=== PATIENT | female | born 1940 | race Caucasian/White ===

== ENCOUNTER 2022-07-24 23:04 | Inpatient (IN) | payer MEDICARE, MEDICAID, SELFPAY ==
--- NOTE | ~2022-07-24 | XR_ITS ---
EXAMINATION: XR chest 1V portable DATE: 07/24/2022 23:50 INDICATION: Hypotensive TECHNIQUE: frontal view of the chest was obtained. COMPARISON: None FINDINGS: Mild streaky left basilar atelectasis. No other airspace opacities, pulmonary edema, pleural effusion or pneumothorax. The cardiomediastinal silhouette is within normal limits for AP technique. Cholecys tectomy clips in right upper quadrant. IMPRESSION: 1. Streaky left basilar atelectasis. Reviewed, dictated and finalized at location A.
--- NOTE | ~2022-07-24 | XR_ITS ---
EXAMINATION: XR chest port-a-cath/central DATE: 07/25/2022 02:11 INDICATION: Status post central line placement TECHNIQUE: frontal view of the chest was obtained. COMPARISON: Chest radiograph dated 07/24/22 FINDINGS: Right internal jugular central venous catheter with distal tip at the midsuperior vena cava. Small yared ng volumes. Mild streaky left basilar atelectasis. No other airspace opacities, pulmonary edema, pleu ral effusion or pneumothorax. The cardiomediastinal silhouette is within normal limits for AP techniq ue. Cholecystectomy clips in right upper quadrant. IMPRESSION: 1. Right internal jugular central venous catheter tip at the midsuperior vena cava. No pneumothorax. 2. Mild streaky left basilar atelectasis. Reviewed, dictated and finalized at location A. IMPRESSION: 1. Right internal jugular central venous catheter tip at the midsuperior vena c geovani. No pneumothorax. 2. Mild streaky left basilar atelectasis.
--- NOTE | ~2022-07-24 | CT_ITS ---
EXAMINATION: CT brain wo con INDICATION: Hypotension, fever, altered mental status COMPARISON: None TECHNIQUE: Standard unenhanced head CT. The dose-length product (DLP) was 681.00 mGy-cm. The mA was a djusted according to patient size. Iterative reconstruction technique was employed. FINDINGS: There is no acute intraparenchymal hemorrhage. No evidence of mass lesion. No evidence of a cute infarction. There is an old infarct in the right frontoparietal region. There is mild periventri cular and subcortical hypodensity probably related to small vessel ischemic disease. There is mild pr ominence of the sulci and ventricles related to cerebral atrophy. Intracranial calcified cerebral ath erosclerosis is noted. There are no extra-axial collections. There is no mass effect or midline shift . The orbits and soft tissues are unremarkable. There is mild mucosal thickening of the paranasal sin uses. IMPRESSION: 1. 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 2. Age related findings. Reviewed, dictated and finalized at location L. IMPRESSION: 1. 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 2. Age related findings.
[2022-07-24 23:10] VITALS: BP 84/55; PULSE 128; RESP 13; TEMP 38.1; O2SAT 95
[2022-07-24 23:22] VITALS: BP 134/63; PULSE 125; RESP 14; TEMP 38.1; O2SAT 96
--- NOTE | 2022-07-24 23:22 | ECG_ITS ---
Measurements Intervals [place] Rate: 127 P: 100 RI: 189 QRS: -47 QRSD: 86 T: 53 QT: 404 QTc: 588 Interpretive Statements SINUS TACHYCARDIA LOW QRS VOLTAGE IN PRECORDIAL LEADS [QRS DEFLECTION < 1.0 mV IN CHEST LEADS] LEFT ANTERIOR FASCICULAR BLOCK [QRS AXIS <= -45, QR IN I, RS IN II] POSSIBLE INFERIOR MYOCARDIAL INFARCTION , PROBABLY OLD [30 ms Q WAVE IN II/aVF] NO PREVIOUS ECG AVAILABLE FOR COMPARISON Electronically Signed On 07-25-2022 10:40:55 CDT by Jayden Medina M.D.
[2022-07-24 23:34] VITALS: BP 134/63; PULSE 124; RESP 19; O2SAT 98
[2022-07-24 23:45] VITALS: BP 93/73; PULSE 121; RESP 19; O2SAT 99
[2022-07-25] VITALS (43 sets, daily range): BP systolic 78–166; BP diastolic 40–106; PULSE 69–111; RESP 12–20; TEMP 32.2–39.7; O2SAT 92–100; BMI 36.6
[2022-07-25 00:08] LABS: Basophils Absolute Auto 0.1 K/mm3 (0.0-0.1); Basophils Percent Auto 0.6 % (0.2-1.2); Hematocrit 43.2 % (37.0-47.0); Immature Granulocyte Absolute 0.19 K/mm3 (0.00-0.031); Immature Granulocyte Percent A 0.9 % (0-0.5); Lymphocytes Absolute Auto 1.26 K/mm3 (0.9-3.2); Lymphocytes Percent Auto 5.8 % (18.3-44.2); Mean Corpuscular HGB Conc 32.4 g/dl (32-36); Mean Corpuscular Hemoglobin 31.3 pg (26-34); Mean Corpuscular Volume 96.6 fl (80-100); Mean Platelet Volume 10.7 fl (7.4-10.4); Monocytes Absolute Auto 2.6 K/mm3 (0.1-0.6); Monocytes Percent Auto 11.8 % (2.6-8.5); Neutrophils Absolute Auto 17.5 K/mm3 (1.3-6.7); Neutrophils Percent Auto 80.9 % (45.5-73.1); Platelet Count Result 177 k/mm3 (150-375); Red Blood Count 4.47 M/mm3 (4.2-5.4); White Blood Count 21.6 K/mm3 (4.5-10.0)
[2022-07-25 00:16] LABS: INR 1.4; Prothrombin Time 16.4 Seconds (11.1-14.7)
[2022-07-25 00:20] LABS: Lactic Acid Reflex 1.9 mmol/L (0.7-2.0)
[2022-07-25 00:21] LABS: Alanine Aminotransferase 20 U/L (6-35); Albumin Level 3.8 g/dL (3.5-5.1); Alkaline Phosphatase 89 U/L (38-126); Anion Gap 9 mmol/L (8-16); Aspartate Amino Transferase 30 U/L (14-36); Bilirubin,Total 1.1 mg/dL (0.2-1.3); Blood Urea Nitrogen 14 mg/dL (7-17); CRP 5.3 mg/dL (<1.0); Calcium 8.5 mg/dL (8.4-10.2); Carbon Dioxide 25 mmol/L (22-30); Chloride 103 mmol/L (98-107); Estimated Glomerular Filt Rate 60; Glucose 227 mg/dL (65-110); Potassium 3.9 mmol/L (3.4-5.0); Sodium 137 mmol/L (137-145)
[2022-07-25 00:28] LABS: Appearance Urine Turbid (Clear); Bacteria Urine 4+ /hpf; Bilirubin Urine 1+ (Negative); Blood Urine 2+ (Negative); Color Urine Dark Yellow (Yellow); Glucose Urine UA Negative (Negative); Ketones Urine 1+ mg/dL (Negative); Leukocyte Esterase Ur 2+ LEU/UL (Negative); Need Manual Microscopic Reviewed; Nitrate Urine Positive (Negative); Protein Urine 3+ mg/dL (Negative); Specific Grav Ur 1.023 (1.001-1.035); Squamous Epithelial Cell Urine None seen /hpf (Few); WBC Urine >100 /hpf; pH Urine 5.5 (5.0-9.0)
[2022-07-25 00:38] LABS: Add Urine Microscopic? YES
[2022-07-25] MEDS: NOREPINEPHRINE 8 MG/D5W 250 ML 8 MG/250 ML BAG 9.38 MG IV CONT (00:40)
--- NOTE | 2022-07-25 00:40 | PC.NURSE ---
VORB ERP Zych RN to initiate Norepinephrine peripherally.
[2022-07-25] MEDS: SODIUM CHLORIDE 0.9% IV 3,000 ML 999 ML IV CONT (00:47)
[2022-07-25 00:55] LABS: Influenza A QL RT-PCR Negative (Negative); Influenza B QL RT-PCR Negative (Negative); RSV RNA, RT-PCR Negative (Negative); SARS-CoV-2 RNA PCR Negative
[2022-07-25 01:55] LABS: Creatine Kinase 47 U/L (30-135); Lipase 30 U/L (23-300); Magnesium 1.7 mg/dL (1.6-2.3); Phosphorus 3.2 mg/dL (2.5-4.5)
[2022-07-25 02:08] LABS: Troponin I 0.018 ng/mL (0.000-0.034)
[2022-07-25] MEDS: CEFEPIME 1 GM/NS 50 ML 1 GM/50 ML BAG IVPB ×3 (02:14→20:58)
--- NOTE | 2022-07-25 02:30 | ED.GENADULT ---
HPI - General Adult General Chief complaint: Nausea/Vomiting/Diarrhea Stated complaint: N/V, FEVER History of Present Illness HPI narrative: This is an 81-year-old female with a history of dementia presenting from the halfway for fever and low blood pressures. The patient is responsive to pain at this point cannot provide any information. Her daughter Cecily is at bedside who is her power of mergers and acquisitions attorney who is provided the history. per the patient's daughter over the last 2 days she has been having a cough and respiratory symptoms. The halfway and obtained an x-ray which was clear. However can not patient's condition continued to worsen and she was then sent to the emergency department for evaluation. They can provide no other information. Related Data Allergies Allergy/AdvReac Type Severity Reaction Status Date / Time Penicillins Allergy Mild Unknown Verified 07/24/22 23:36 [facility] Past Medical History Medical History (Updated 07/25/22 @ 02:53 by Mauricio Dickinson MD) Dementia Depression Social History Social History (Updated 07/25/22 @ 02:33 by Mauricio Dickinson MD) Social History: Patient lives in [facility]. Denies use of drugs alcohol tobacco. Exam Narrative: APPEARANCE: Patient looks ill, responsive to pain Head: atraumatic. EYES: EOMI, NOSE: Atraumatic NECK: Trachea midline RESPIRATORY: No increased rate of breathing, scattered rhonchi, hypoxic on room air CARDIOVASCULAR: tachycardic, ABDOMINAL: distended, soft no guarding or rebound MUSCULOSKELETAl: No obvious deformities NEURO: Alert. Moving 4/4 extremities SKIN:: pale, no sacral skin breakdown PSYCHIATRIC: responsive to pain Course Vital Signs Vital signs: Vital Signs Temperature 100.5 F H 07/24/22 23:10 Pulse Rate 128 H 07/24/22 23:10 Respiratory Rate 13 07/24/22 23:10 Blood Pressure 84/55 L 07/24/22 23:10 Pulse Oximetry 95 07/24/22 23:10 Oxygen Delivery Nasal Cannula 07/24/22 23:10 Oxygen Flow Rate 2 07/24/22 23:10 Temperature 94.8 F L 07/25/22 01:16 Pulse Rate 78 07/25/22 01:16 Respiratory Rate 13 07/25/22 01:16 Blood Pressure 107/47 L 07/25/22 01:16 Pulse Oximetry 100 07/25/22 01:16 Oxygen Delivery Nasal Cannula 07/24/22 23:10 Oxygen Flow Rate 2 07/24/22 23:10 Procedures Central Line Placement Right IJ: Central Line Date: 07/25/22 Discussed w/ the patient/family/POA,the placement of a central venous catheter, including its clinical necessity/indication & associated potential risks, benifits and alternatives.: Yes Performed Emergently - Given emergent patient condition, temporal constraints may have precluded informed consent.: Yes Time Out Performed: Yes Max. Sterile Barrier Technique: Caps, large sterile sheet and hand hygiene Central Line Prep: 2% chlorhexidine scrub and sterile drapes applied Technique: US-Guided Local Anesthetic: lidocaine 2% Ultrasound Used for Placement: Yes Central Line Lumen Inserted: triple Post Procedure: sutured in place, good blood return, all ports aspirated, flushed, capped and sterile dressing applied Post Procedure X-Ray: tip of catheter in good position and no pneumothorax seen Patient Tolerated Procedure: well Additional Comments: left subclavian placement was attempted but was unable to advance the guidewire. Switch to right IJ at that point under ultrasound guidance. Chest x-ray showed proper location with no pneumothorax. EJ/Peripheral Line Arm R: EJ/Peripheral Line Date: 07/25/22 Time Out Performed: Yes Skin Cleansed in Sterile Fashion: Yes Ultrasound Guided: Yes Size (gauge): 20 IV Secured and Dressing Applied: Yes Patient Tolerated Procedure: well Additional Comments: 20 gauge ultrasound IV started by MD due to difficult access. Medical Decision Making LILY thornton
--- NOTE | 2022-07-25 03:57 | PM.IMHP ---
H&P: HPI History of Present Illness Date/Time: 07/25/22 03:57 Chief Complaint: Altered mental status Narrative: This is an 81-year-old female assisted resident, past medical history significant for dementia, hypertension. Patient was brought to the emergency room due to episode of fever and low blood pressure most of the history has been obtained upon reviewing medical records, discussion with emergency room doctor and review of lab work and imaging. Preliminary workup was significant for urinalysis with numerous WBCs present. In emergency room patient had a core temperature of 90? degrees, required central line for vasopressors, early goal-directed therapy was commenced. Patient is been admitted to intensive care unit. A chest x-ray was reported as: FINDINGS: Mild streaky left basilar atelectasis. No other airspace opacities, pulmonary edema, pleural effusion or pneumothorax. The cardiomediastinal silhouette is within normal limits for AP technique. Cholecystectomy clips in right upper quadrant. IMPRESSION: 1. Streaky left basilar atelectasis. A head CT was reported as: FINDINGS: There is no acute intraparenchymal hemorrhage. No evidence of mass lesion. No evidence of acute infarction. There is an old infarct in the right frontoparietal region. There is mild periventricular and subcortical hypodensity probably related to small vessel ischemic disease. There is mild prominence of the sulci and ventricles related to cerebral atrophy. Intracranial calcified cerebral atherosclerosis is noted. There are no extra-axial collections. There is no mass effect or midline shift. The orbits and soft tissues are unremarkable. There is mild mucosal thickening of the paranasal sinuses. IMPRESSION: 1. 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 2. Age related findings. Review of Systems Review of Systems: ROS unobtainable: Yes unobtainable due to mental status (Acute delirium in the setting of dementia) [facility] Past Medical History Medical History (Updated 07/25/22 @ 09:22 by Joaquin Solomon MD) Dementia Depression Social History Social History (Updated 07/25/22 @ 02:33 by Mauricio Dickinson MD) Social History: Patient lives in [facility]. Denies use of drugs alcohol tobacco. Smoking status: Former smoker Additional smoking assessment comments: Stopped smoking several decades ago, unsure how much Alcohol intake: former Substance use: never Spiritual care concerns: No Meds Home Medications and Allergies Home Medications Medication Instructions Recorded Confirmed Type albuterol sulfate 90 mcg/actuation 2 inh inhalation Q6H PRN Shortness 07/25/22 07/25/22 History aerosol inhaler Of Breath Or Wheezing amlodipine 5 mg tablet 5 mg PO DAILY 07/25/22 07/25/22 History cholecalciferol (vitamin D3) 50 50 mcg PO DAILY 07/25/22 07/25/22 History mcg (2,000 unit) tablet donepezil 10 mg tablet 10 mg PO DAILY 07/25/22 07/25/22 History famotidine 20 mg tablet 20 mg PO DAILY 07/25/22 07/25/22 History linaclotide 145 mcg capsule 145 mcg PO DAILY 07/25/22 07/25/22 History (Linzess) losartan 100 mg tablet 100 mg PO DAILY 07/25/22 07/25/22 History memantine 10 mg tablet 10 mg PO BID 07/25/22 07/25/22 History nystatin 100,000 unit/gram topical 1 applic topical BID 07/25/22 07/25/22 History powder ondansetron 4 mg disintegrating 4 mg PO Q6H PRN Nausea 07/25/22 07/25/22 History tablet quetiapine 100 mg tablet 100 mg PO DAILY 07/25/22 07/25/22 History Allergies Allergy/AdvReac Type Severity Reaction Status Date / Time Penicillins Allergy Mild Unknown Verified 07/24/22 23:36 Vital Signs Vital Signs - 24 hr 07/24/22 23:10 07/24/22 23:22 07/25/22 00:00 Temperature 100.5 F H 100.5 F H 100 F H Pulse Rate 128 H 125 H Respiratory Rate 13 14 Blood Pressure 84/55 L 134/63 Pulse Oximetry 95 96 Oxygen Delivery Nasal Cannula Oxygen Flow Rate 2 04
[2022-07-25 03:58] LABS: Troponin I 0.014 ng/mL (0.000-0.034)
--- NOTE | 2022-07-25 04:20 | ADMGEN ---
This patient, Darlene Alford, was admitted to Intensive Care Unit-1. Patient/family oriented to hospital policies and general routines including ID bracelet, bed and alarms, visiting hours, pain management, procedures, bathroom and other care routines, personal items, smoking policy, room service/diet, and visiting hours. Information on how to activate the Rapid Response Team has been discussed. Patient/Family are encouraged to report perceived risks to care and to ask questions if they do not understand what they are told or what they should do.
--- NOTE | 2022-07-25 04:51 | PC.NURSE ---
Upon arrival to unit, patient noted to be hypertensive with BP as charted. Norepinephrine paused by guest services and admission interview started with family. BP remains elevated at this time. Levophed will remain on hold and MD notified.
[2022-07-25] MEDS: SODIUM CHLORIDE 0.9% IV 1,000 ML 85 ML IV CONT ×2 (05:16→18:20)
--- NOTE | 2022-07-25 07:15 | PC.NURSE ---
Addendum entered by Yong Kinsey RN 07/25/22 07:17: Patient's status discussed with furniture assembly supervisor during 0700 rounds as well. Original Note: RN contacted jockey room custodian multiple times throughout the night since patient's arrival to the floor and received new orders at various intervals. (See orders). During these contacts we discussed patient's vitals including her BP and temperature and her medications as well as her response to them.
[2022-07-25] MEDS: MEMANTINE 10 MG TABLET PO ×2 (08:59→18:20)
[2022-07-25] MEDS: CHOLECALCIFEROL 1,000 UNITS TABLET 2000 UNITS PO (08:59)
[2022-07-25] MEDS: LINACLOTIDE 145 MCG CAPSULE PO (09:00)
[2022-07-25] MEDS: DONEPEZIL HCL 10 MG TABLET PO (09:00)
[2022-07-25] MEDS: QUEtiapine FUMARATE 100 MG TABLET PO (09:00)
[2022-07-25] MEDS: FAMOTIDINE 20 MG TABLET PO (09:01)
[2022-07-25] MEDS: TOLNAFTATE 1% POWDER 45 GM BTL 1 APPLIC TOPICAL (09:01)
--- NOTE | 2022-07-25 09:05 | WPDCNINT ---
Assessment and Plan Assessment and plan (1) Septic shock: Code(s): A41.9 - Sepsis, unspecified organism; R65.21 - Severe sepsis with septic shock Status: Acute Assessment and Plan: Patient presented with altered mental status, hypotension, fevers - ER patient was found to be hypotensive despite fluid bolus of 30 mL/kg, she was started on Levophed - currently off Levophed - likely source of infection is urine, UA was strongly positive for UTI - patient started on vancomycin and cefepime (07/25) - blood and urine cultures have been obtained, will deescalate antibiotics after cultures results - maintain mean arterial pressure > 65 mmHg for adequate end organ perfusion - lactic acid is 1.9, LFTs are within normal limits, troponins are negative x2 (2) Acute UTI: Code(s): N39.0 - Urinary tract infection, site not specified Status: Acute Assessment and Plan: UA strongly positive for UTI - continue antibiotics as above - urine cultures have been obtained and pending (3) Altered mental status: Code(s): R41.82 - Altered mental status, unspecified Status: Acute Assessment and Plan: mental status improving, patient more awake this morning, able to answer questions and follow simple commands (4) Dementia: Code(s): F03.90 - Unspecified dementia, unspecified severity, without behavioral disturbance, psychotic disturbance, mood disturbance, and anxiety Status: Acute Assessment and Plan: history of dementia - continued donepezil, Namenda, Seroquel (5) Essential hypertension: Code(s): I10 - Essential (primary) hypertension Status: Acute Assessment and Plan: history of essential hypertension hold all antihypertensives at this time Plan DVT prophylaxis: Stress ulcer prophylaxis: famotidine Nutrition: will start diet Code Status: not resuscitate, do not intubate Critical Care Time Spent: 47 minutes Due to a high probability of clinically significant, life threatening deterioration, the patient required my highest level of preparedness to intervene emergently and I personally spent this critical care time directly and personally managing the patient. This critical care time included obtaining a history; examining the patient; pulse oximetry; ordering and review of studies; arranging urgent treatment with development of a management plan; evaluation of patient's response to treatment; frequent reassessment; and discussions with other providers. It was exclusive of separately billable procedures and treating other patients and teaching time. Please see Assessment and Plan section and the rest of the note for further information on patient assessment and treatment This dictation may have been done utilizing a voice recognition system. Attempts have been made to correct errors. However, there may be uncorrected grammatical, spelling, and recognitions errors present. Manager Of Organizational Development Consult Note Consult date: 07/25/22 Reason for consult: Septic shock, UTI, fevers, hypotension, cough HPI: Darlene Alford is a 81 year old female past medical history of dementia, depression, essential hypertension presented the ED on 07/25/2022 with complains of hypotension, fevers, cough, chest x-ray done at the custodial was normal which he continue to worsen and was sent to the ED for further evaluation. In the ER is she was found to have leukocytosis, UA was strongly positive for UTI. Patient tested negative for COVID, RSV and influenza A & B. CT head showed old right frontoparietal region infarct without acute intracranial abnormality, age-related fin chest x-ray showed right internal jugular central venous catheter tip at the mid superior vena cava, no pneumothorax, mild streaky left basal atelectasis. Patient was given 30 mL/kg IV fluids despite which her blood pressures were low, patient was startedOn Levophed and transferred to the ICU. She did receive vancom
[2022-07-25] MEDS: ENOXAPARIN 40 MG/0.4 ML SYRINGE SUB-Q (10:24)
--- NOTE | 2022-07-25 15:38 | PC.NURSE ---
This patient, Darlene Alford, was transferred to [facility] on 07/25/22 at 1538. Personal belongings sent with patient. Report given to Flaquita. Appropriate documentation sent with patient.
[2022-07-26] VITALS (9 sets, daily range): BP systolic 144–160; BP diastolic 61–70; PULSE 89–99; RESP 14–20; TEMP 36.8–37.3; O2SAT 91–92
[2022-07-26 03:53] LABS: Basophils Absolute Auto 0.1 K/mm3 (0.0-0.1); Basophils Percent Auto 0.6 % (0.2-1.2); Eosinophils Absolute Auto 0.1 K/mm3 (0-0.3); Eosinophils Percent Auto 0.3 % (0-4.4); Hematocrit 39.6 % (37.0-47.0); Hemoglobin 12.9 g/dL (12.0-15.0); Immature Granulocyte Absolute 0.18 K/mm3 (0.00-0.031); Immature Granulocyte Percent A 0.8 % (0-0.5); Lymphocytes Absolute Auto 1.92 K/mm3 (0.9-3.2); Lymphocytes Percent Auto 8.8 % (18.3-44.2); Mean Corpuscular HGB Conc 32.6 g/dl (32-36); Mean Corpuscular Volume 98.3 fl (80-100); Mean Platelet Volume 10.6 fl (7.4-10.4); Monocytes Absolute Auto 2.3 K/mm3 (0.1-0.6); Monocytes Percent Auto 10.5 % (2.6-8.5); Neutrophils Absolute Auto 17.3 K/mm3 (1.3-6.7); Platelet Count Result 146 k/mm3 (150-375); Red Blood Count 4.03 M/mm3 (4.2-5.4); Red Cell Distribution Width 14.6 % (11.5-14.5); White Blood Count 21.9 K/mm3 (4.5-10.0)
[2022-07-26 03:59] LABS: Alanine Aminotransferase 17 U/L (6-35); Albumin Level 3.2 g/dL (3.5-5.1); Alkaline Phosphatase 74 U/L (38-126); Anion Gap 6 mmol/L (8-16); Aspartate Amino Transferase 24 U/L (14-36); Bilirubin,Total 0.8 mg/dL (0.2-1.3); Blood Urea Nitrogen 12 mg/dL (7-17); Calcium 7.8 mg/dL (8.4-10.2); Carbon Dioxide 26 mmol/L (22-30); Chloride 107 mmol/L (98-107); Estimated CRCL calculation 62 ml/min; Estimated Glomerular Filt Rate > 60; Glucose 204 mg/dL (65-110); Magnesium 1.5 mg/dL (1.6-2.3); Phosphorus 1.5 mg/dL (2.5-4.5); Potassium 3.6 mmol/L (3.4-5.0); Sodium 139 mmol/L (137-145)
[2022-07-26] MEDS: SODIUM CHLORIDE 0.9% IV 1,000 ML 85 ML IV CONT ×2 (09:05→21:43)
[2022-07-26] MEDS: CHOLECALCIFEROL 1,000 UNITS TABLET 2000 UNITS PO (09:14)
[2022-07-26] MEDS: CEFEPIME 1 GM/NS 50 ML 1 GM/50 ML BAG IVPB (09:14)
[2022-07-26] MEDS: DONEPEZIL HCL 10 MG TABLET PO (09:15)
[2022-07-26] MEDS: ENOXAPARIN 40 MG/0.4 ML SYRINGE SUB-Q (09:15)
[2022-07-26] MEDS: MEMANTINE 10 MG TABLET PO ×2 (09:15→18:25)
[2022-07-26] MEDS: FAMOTIDINE 20 MG TABLET PO (09:15)
[2022-07-26] MEDS: LINACLOTIDE 145 MCG CAPSULE PO (09:15)
[2022-07-26] MEDS: TOLNAFTATE 1% POWDER 45 GM BTL 1 APPLIC TOPICAL ×2 (09:16→18:24)
[2022-07-26] MEDS: QUEtiapine FUMARATE 100 MG TABLET PO (09:17)
--- NOTE | 2022-07-26 12:01 | PM.IMPN ---
Progress Note: A&P Assessment and Plan (1) Sepsis: Code(s): A41.9 - Sepsis, unspecified organism Status: Acute Assessment and Plan: Admit to ICU Early goal-directed therapy in progress Await cultures On broad-spectrum antibiotics On vasopressors Mathur in strict intake and output Supportive care (2) Acute UTI: Code(s): N39.0 - Urinary tract infection, site not specified Status: Acute Assessment and Plan: Await cultures On broad-spectrum antibiotics (3) Altered mental status: Code(s): R41.82 - Altered mental status, unspecified Status: Acute Assessment and Plan: Likely secondary to encephalopathy (4) Dementia: Code(s): F03.90 - Unspecified dementia, unspecified severity, without behavioral disturbance, psychotic disturbance, mood disturbance, and anxiety Status: Acute Assessment and Plan: Unchanged Subjective Date/time seen: 07/26/22 12:01 No complaints Exam Narrative: General: elderly female in no acute distress at this time HEENT:? pupils equal and reactive, moist oral mucosa Neck:? supple Respiratory:? clear to auscultation decreased at bases Cardiac:? S1-S2 is normal, regular rate and rhythm Abdomen:? soft, nontender, nondistended, normoactive bowel sounds, obese Extremities:? no edema, palpable pedal pulses Neuro:? patient is awake, alert, answers to questions appropriately and follows simple commands in all extremities, patient somnolent Skin:? no skin lesions noted Objective Data Vital Signs Vital Signs: Vital Signs - 24 hr 07/25/22 15:50 07/25/22 16:00 07/25/22 22:00 Temperature 98 F 99.4 F Pulse Rate 87 87 91 Respiratory Rate 13 14 Blood Pressure 154/57 H 156/61 H Pulse Oximetry 93 93 Oxygen Delivery 07/25/22 20:00 07/25/22 20:00 07/26/22 00:00 Temperature Pulse Rate 90 98 Respiratory Rate Blood Pressure Pulse Oximetry Oxygen Delivery Room Air 07/26/22 04:00 07/26/22 05:40 07/26/22 08:00 Temperature 98.7 F Pulse Rate 99 99 99 Respiratory Rate 14 Blood Pressure 144/61 H Pulse Oximetry 91 Oxygen Delivery 07/26/22 08:00 Temperature Pulse Rate Respiratory Rate Blood Pressure Pulse Oximetry Oxygen Delivery Room Air Intake/Output Intake/Output: Intake & Output 07/23/22 07/24/22 07/25/22 07/26/22 23:59 23:59 23:59 23:59 Intake Total 4250 2580 Output Total 794 557 4126 Balance -200 3825 1380 Meds/Results Medications: Active Medications Generic Name Dose Route Start Last Admin Trade Name Freq PRN Reason Stop Dose Admin Acetaminophen 650 mg 07/25/22 04:41 Acetaminophen 650 Mg Suppository RECTAL Q6H PRN Mild Pain (1-3) or Fever Albuterol 2 puff 07/25/22 04:32 Albuterol Sulfate (*Sp) Aerosol 1 Puff INHALATION Q6HRT PRN Shortness Of Breath Or Wheezing Amlodipine Besylate 5 mg 07/25/22 09:00 Amlodipine Besylate 5 Mg Tablet PO DAILY AURY Donepezil HCl 10 mg 07/25/22 09:00 07/26/22 09:15 Donepezil Hcl 10 Mg Tablet PO 10 mg DAILY AURY Administration Enoxaparin Sodium 40 mg 07/25/22 10:00 07/26/22 09:15 Enoxaparin 40 Mg/0.4 Ml Syringe SUB-Q 40 mg DAILY AURY Administration Famotidine 20 mg 07/25/22 09:00 07/26/22 09:15 Famotidine 20 Mg Tablet PO 20 mg DAILY AURY Administration Acetaminophen 1,000 mg in 100 mls @ 400 mls/hr 07/25/22 05:01 07/26/22 05:39 Ofirmev 1,000 Mg Ivpb IVPB 07/27/22 05:00 Infused Q6H PRN Infusion Pain Rated 4-6 Sodium Chloride 1,000 mls @ 85 mls/hr 07/25/22 05:05 07/26/22 09:05 Normal Saline Iv IV CONT 85 mls/hr .[id number] AURY Administration Cefepime HCl 1 gm in 50 mls @ 100 mls/hr 07/25/22 11:00 07/26/22 09:14 Maxipime 1 Gm/Ns 50 Ml IVPB 100 mls/hr Q12HR AURY Administration Vancomycin HCl 1,250 mg in 250 mls @ 166.667 mls/hr 07/26/22 21:00 Vancomycin 1,250 Mg/D5w 250 Ml IVPB Q18H AURY
--- NOTE | 2022-07-26 16:45 | PCDIET ---
Blood culture results reported per lab. aware.
[2022-07-26] MEDS: CEFEPIME 2 GM/NS 50 ML 2 GM/50 ML BAG IVPB (18:24)
[2022-07-27] VITALS (10 sets, daily range): BP systolic 148–161; BP diastolic 68–75; PULSE 82–90; RESP 20; TEMP 36.2–36.3; O2SAT 90–93
[2022-07-27] MEDS: CEFEPIME 2 GM/NS 50 ML 2 GM/50 ML BAG IVPB ×2 (05:12→17:18)
[2022-07-27] MEDS: ENOXAPARIN 40 MG/0.4 ML SYRINGE SUB-Q (09:10)
[2022-07-27] MEDS: CHOLECALCIFEROL 1,000 UNITS TABLET 2000 UNITS PO (09:10)
[2022-07-27] MEDS: TOLNAFTATE 1% POWDER 45 GM BTL 1 APPLIC TOPICAL ×2 (09:11→22:19)
[2022-07-27] MEDS: DONEPEZIL HCL 10 MG TABLET PO (09:11)
[2022-07-27] MEDS: MEMANTINE 10 MG TABLET PO ×2 (09:11→16:56)
[2022-07-27] MEDS: FAMOTIDINE 20 MG TABLET PO (09:17)
[2022-07-27] MEDS: QUEtiapine FUMARATE 100 MG TABLET PO (09:18)
[2022-07-27] MEDS: LINACLOTIDE 145 MCG CAPSULE PO (09:18)
[2022-07-27] MEDS: SODIUM CHLORIDE 0.9% IV 1,000 ML 85 ML IV CONT ×2 (09:36→22:19)
[2022-07-27 09:45] LABS: Basophils Absolute Auto 0.2 K/mm3 (0.0-0.1); Eosinophils Absolute Auto 0.2 K/mm3 (0-0.3); Hematocrit 40.8 % (37.0-47.0); Hemoglobin 13.5 g/dL (12.0-15.0); Immature Granulocyte Absolute 0.13 K/mm3 (0.00-0.031); Immature Granulocyte Percent A 0.9 % (0-0.5); Lymphocytes Absolute Auto 1.82 K/mm3 (0.9-3.2); Lymphocytes Percent Auto 11.9 % (18.3-44.2); Mean Corpuscular HGB Conc 33.1 g/dl (32-36); Mean Corpuscular Hemoglobin 31.5 pg (26-34); Mean Corpuscular Volume 95.3 fl (80-100); Mean Platelet Volume 10.7 fl (7.4-10.4); Monocytes Absolute Auto 1.8 K/mm3 (0.1-0.6); Monocytes Percent Auto 11.6 % (2.6-8.5); Neutrophils Absolute Auto 11.3 K/mm3 (1.3-6.7); Neutrophils Percent Auto 73.6 % (45.5-73.1); Platelet Count Result 155 k/mm3 (150-375); Red Blood Count 4.28 M/mm3 (4.2-5.4); Red Cell Distribution Width 14.1 % (11.5-14.5); White Blood Count 15.3 K/mm3 (4.5-10.0)
--- NOTE | 2022-07-27 12:23 | PM.IMPN ---
Progress Note: A&P Assessment and Plan (1) Sepsis: Code(s): A41.9 - Sepsis, unspecified organism Status: Acute Assessment and Plan: Admit to ICU Early goal-directed therapy in progress Await cultures On broad-spectrum antibiotics On vasopressors Mathur in strict intake and output Supportive care (2) Acute UTI: Code(s): N39.0 - Urinary tract infection, site not specified Status: Acute Assessment and Plan: Await cultures On broad-spectrum antibiotics (3) Altered mental status: Code(s): R41.82 - Altered mental status, unspecified Status: Acute Assessment and Plan: Likely secondary to encephalopathy (4) Dementia: Code(s): F03.90 - Unspecified dementia, unspecified severity, without behavioral disturbance, psychotic disturbance, mood disturbance, and anxiety Status: Acute Assessment and Plan: Unchanged Subjective Date/time seen: 07/27/22 12:23 No complaints Exam Narrative: General: elderly female in no acute distress at this time HEENT:? pupils equal and reactive, moist oral mucosa Neck:? supple Respiratory:? clear to auscultation decreased at bases Cardiac:? S1-S2 is normal, regular rate and rhythm Abdomen:? soft, nontender, nondistended, normoactive bowel sounds, obese Extremities:? no edema, palpable pedal pulses Neuro:? patient is awake, alert, answers to questions appropriately and follows simple commands in all extremities, patient somnolent Skin:? no skin lesions noted Objective Data Vital Signs Vital Signs: Vital Signs - 24 hr 07/26/22 14:00 07/26/22 16:00 07/26/22 20:00 Temperature 98.2 F Pulse Rate 92 92 Respiratory Rate 18 Blood Pressure 150/64 H Pulse Oximetry 91 Oxygen Delivery Room Air 07/26/22 22:00 07/26/22 20:00 07/27/22 00:00 Temperature 99.1 F Pulse Rate 89 90 88 Respiratory Rate 20 Blood Pressure 160/70 H Pulse Oximetry 92 Oxygen Delivery 07/27/22 04:00 07/27/22 06:00 07/27/22 09:10 Temperature 97.2 F L Pulse Rate 82 88 Respiratory Rate 20 Blood Pressure 161/75 H Pulse Oximetry 90 Oxygen Delivery Room Air 07/27/22 12:14 Temperature Pulse Rate 87 Respiratory Rate Blood Pressure Pulse Oximetry 93 Oxygen Delivery Room Air Intake/Output Intake/Output: Intake & Output 07/24/22 07/25/22 07/26/22 07/27/22 23:59 23:59 23:59 23:59 Intake Total 4250 4990 1168 Output Total 269 810 2047 1900 Balance -200 3825 5096 -504 Meds/Results Medications: Active Medications Generic Name Dose Route Start Last Admin Trade Name Freq PRN Reason Stop Dose Admin Acetaminophen 650 mg 07/25/22 04:41 Acetaminophen 650 Mg Suppository RECTAL Q6H PRN Mild Pain (1-3) or Fever Albuterol 2 puff 07/25/22 04:32 Albuterol Sulfate (*Sp) Aerosol 1 Puff INHALATION Q6HRT PRN Shortness Of Breath Or Wheezing Amlodipine Besylate 5 mg 07/25/22 09:00 Amlodipine Besylate 5 Mg Tablet PO DAILY AURY Donepezil HCl 10 mg 07/25/22 09:00 07/27/22 09:11 Donepezil Hcl 10 Mg Tablet PO 10 mg DAILY AURY Administration Enoxaparin Sodium 40 mg 07/25/22 10:00 07/27/22 09:10 Enoxaparin 40 Mg/0.4 Ml Syringe SUB-Q 40 mg DAILY AURY Administration Famotidine 20 mg 07/25/22 09:00 07/27/22 09:17 Famotidine 20 Mg Tablet PO 20 mg DAILY AURY Administration Sodium Chloride 1,000 mls @ 85 mls/hr 07/25/22 05:05 07/27/22 09:36 Normal Saline Iv IV CONT 85 mls/hr .[id number] AURY Administration Cefepime HCl 2 gm in 50 mls @ 100 mls/hr 07/26/22 18:00 07/27/22 06:15 Maxipime 2 Gm/Ns 50 Ml IVPB Infused Q12H AURY Infusion Linaclotide 145 mcg 07/25/22 09:00 07/27/22 09:18 Linaclotide 145 Mcg Capsule PO 145 mcg DAILY AURY Administration Losartan Potassium 100 mg 07/25/22 09:00 Losartan Potassium 100 Mg Tablet PO DAILY AURY Memantine 10 mg 07/25/22 09:00 07/27/22 09:11 Memant
[2022-07-27] MEDS: CENTRAL LINE FLUSH 10 ML IV PUSH ×2 (14:01→22:19)
[2022-07-28] VITALS (7 sets, daily range): BP systolic 149–168; BP diastolic 68–76; PULSE 81–94; RESP 16–18; TEMP 36.3–37.1; O2SAT 94–95
[2022-07-28 05:05] LABS: Basophils Absolute Auto 0.1 K/mm3 (0.0-0.1); Basophils Percent Auto 1.2 % (0.2-1.2); Eosinophils Absolute Auto 0.2 K/mm3 (0-0.3); Eosinophils Percent Auto 1.7 % (0-4.4); Hematocrit 39.8 % (37.0-47.0); Hemoglobin 13.2 g/dL (12.0-15.0); Immature Granulocyte Absolute 0.08 K/mm3 (0.00-0.031); Immature Granulocyte Percent A 0.8 % (0-0.5); Lymphocytes Absolute Auto 1.63 K/mm3 (0.9-3.2); Lymphocytes Percent Auto 15.3 % (18.3-44.2); Mean Corpuscular HGB Conc 33.2 g/dl (32-36); Mean Corpuscular Hemoglobin 31.1 pg (26-34); Mean Corpuscular Volume 93.6 fl (80-100); Mean Platelet Volume 10.4 fl (7.4-10.4); Monocytes Absolute Auto 1.4 K/mm3 (0.1-0.6); Monocytes Percent Auto 13.4 % (2.6-8.5); Neutrophils Absolute Auto 7.2 K/mm3 (1.3-6.7); Neutrophils Percent Auto 67.6 % (45.5-73.1); Platelet Count Result 169 k/mm3 (150-375); Red Blood Count 4.25 M/mm3 (4.2-5.4); Red Cell Distribution Width 13.5 % (11.5-14.5); White Blood Count 10.7 K/mm3 (4.5-10.0)
[2022-07-28 05:14] LABS: Anion Gap 4 mmol/L (8-16); Blood Urea Nitrogen 9 mg/dL (7-17); Calcium 7.9 mg/dL (8.4-10.2); Carbon Dioxide 33 mmol/L (22-30); Chloride 101 mmol/L (98-107); Estimated CRCL calculation 72 ml/min; Estimated Glomerular Filt Rate > 60; Glucose 153 mg/dL (65-110); Potassium 2.9 mmol/L (3.4-5.0); Sodium 138 mmol/L (137-145)
[2022-07-28] MEDS: CEFEPIME 2 GM/NS 50 ML 2 GM/50 ML BAG IVPB ×2 (05:46→17:04)
[2022-07-28] MEDS: CENTRAL LINE FLUSH 10 ML IV PUSH (05:46)
[2022-07-28] MEDS: CHOLECALCIFEROL 1,000 UNITS TABLET 2000 UNITS PO (08:33)
[2022-07-28] MEDS: MEMANTINE 10 MG TABLET PO ×2 (08:34→17:04)
[2022-07-28] MEDS: DONEPEZIL HCL 10 MG TABLET PO (08:34)
[2022-07-28] MEDS: LINACLOTIDE 145 MCG CAPSULE PO (08:34)
[2022-07-28] MEDS: FAMOTIDINE 20 MG TABLET PO (08:34)
[2022-07-28] MEDS: QUEtiapine FUMARATE 100 MG TABLET PO (08:34)
[2022-07-28] MEDS: ENOXAPARIN 40 MG/0.4 ML SYRINGE SUB-Q (08:35)
[2022-07-28] MEDS: POTASSIUM CHLORIDE 20 MEQ TABLET 40 MEQ PO (08:38)
[2022-07-28] MEDS: TOLNAFTATE 1% POWDER 45 GM BTL 1 APPLIC TOPICAL ×2 (08:47→21:35)
[2022-07-28] MEDS: POTASSIUM CHLORIDE 20 MEQ PACKET (FOR LIQUID) 40 MEQ PO (11:09)
[2022-07-28] MEDS: NEOMYCIN/POLYMYXIN/BACITRACIN OINTMENT PACKET 1 PACKET (11:09)
--- NOTE | 2022-07-28 11:35 | PM.IMPN ---
Progress Note: A&P Assessment and Plan (1) Sepsis: Code(s): A41.9 - Sepsis, unspecified organism Status: Acute Assessment and Plan: Continue IV antibiotics, sepsis is improved (2) Acute UTI: Code(s): N39.0 - Urinary tract infection, site not specified Status: Acute Assessment and Plan: Await cultures On broad-spectrum antibiotics (3) Altered mental status: Code(s): R41.82 - Altered mental status, unspecified Status: Acute Assessment and Plan: Likely secondary to encephalopathy (4) Dementia: Code(s): F03.90 - Unspecified dementia, unspecified severity, without behavioral disturbance, psychotic disturbance, mood disturbance, and anxiety Status: Acute Assessment and Plan: Unchanged Subjective Date/time seen: 07/28/22 11:35 No new complaints Exam Narrative: General: elderly female in no acute distress at this time HEENT:? pupils equal and reactive, moist oral mucosa Neck:? supple Respiratory:? clear to auscultation decreased at bases Cardiac:? S1-S2 is normal, regular rate and rhythm Abdomen:? soft, nontender, nondistended, normoactive bowel sounds, obese Extremities:? no edema, palpable pedal pulses Neuro:? patient is awake, alert, answers to questions appropriately and follows simple commands in all extremities, patient somnolent Skin:? no skin lesions noted Objective Data Vital Signs Vital Signs: Vital Signs - 24 hr 07/27/22 12:14 07/27/22 12:00 07/27/22 14:00 Temperature 97.1 F L Pulse Rate 87 86 83 Respiratory Rate 20 Blood Pressure 148/68 H Pulse Oximetry 93 91 Oxygen Delivery Room Air 07/27/22 16:00 07/27/22 21:54 07/27/22 20:00 Temperature 97.4 F L Pulse Rate 85 90 Respiratory Rate 20 Blood Pressure 160/68 H Pulse Oximetry 92 Oxygen Delivery Room Air 07/27/22 20:00 07/28/22 00:00 07/28/22 04:00 Temperature Pulse Rate 84 83 81 Respiratory Rate Blood Pressure Pulse Oximetry Oxygen Delivery 07/28/22 06:00 07/28/22 08:00 Temperature 97.3 F L Pulse Rate 81 81 Respiratory Rate 18 Blood Pressure 168/76 H Pulse Oximetry 94 Oxygen Delivery Intake/Output Intake/Output: Intake & Output 04/10/1107/26/22 07/27/22 07/28/22 23:59 23:59 23:59 23:59 Intake Total 4251 8121 9625 300 Output Total 425 5990 8634 280 Balance 3820 4453 -[id number] -4024 Meds/Results Medications: Active Medications Generic Name Dose Route Start Last Admin Trade Name Freq PRN Reason Stop Dose Admin Acetaminophen 650 mg 07/25/22 04:41 Acetaminophen 650 Mg Suppository RECTAL Q6H PRN Mild Pain (1-3) or Fever Albuterol 2 puff 07/25/22 04:32 Albuterol Sulfate (*Sp) Aerosol 1 Puff INHALATION Q6HRT PRN Shortness Of Breath Or Wheezing Amlodipine Besylate 5 mg 07/25/22 09:00 Amlodipine Besylate 5 Mg Tablet PO DAILY AURY Donepezil HCl 10 mg 07/25/22 09:00 07/28/22 08:34 Donepezil Hcl 10 Mg Tablet PO 10 mg DAILY AURY Administration Enoxaparin Sodium 40 mg 07/25/22 10:00 07/28/22 08:35 Enoxaparin 40 Mg/0.4 Ml Syringe SUB-Q 40 mg DAILY AURY Administration Famotidine 20 mg 07/25/22 09:00 07/28/22 08:34 Famotidine 20 Mg Tablet PO 20 mg DAILY AURY Administration Sodium Chloride 1,000 mls @ 85 mls/hr 07/25/22 05:05 07/27/22 22:19 Normal Saline Iv IV CONT 85 mls/hr .[id number] AURY Administration Cefepime HCl 2 gm in 50 mls @ 100 mls/hr 07/26/22 18:00 07/28/22 06:15 Maxipime 2 Gm/Ns 50 Ml IVPB Infused Q12H AURY Infusion Linaclotide 145 mcg 07/25/22 09:00 07/28/22 08:34 Linaclotide 145 Mcg Capsule PO 145 mcg DAILY AURY Administration Losartan Potassium 100 mg 07/25/22 09:00 Losartan Potassium 100 Mg Tablet PO DAILY AURY Memantine 10 mg 07/25/22 09:00 07/28/22 08:34 Memantine 10 Mg Tablet PO 10 mg BID AURY Administration Quetiapine Fumarate 100 mg 07/25/22
[2022-07-28] MEDS: SODIUM CHLORIDE 0.9% IV 1,000 ML 85 ML IV CONT (12:20)
[2022-07-29] MEDS: CEFEPIME 2 GM/NS 50 ML 2 GM/50 ML BAG IVPB (05:13)
[2022-07-29 06:00] VITALS: BP 119/98; PULSE 80; RESP 16; TEMP 36.4; O2SAT 92
[2022-07-29] MEDS: SODIUM CHLORIDE 0.9% IV 1,000 ML 85 ML IV CONT ×2 (06:39→08:58)
[2022-07-29 09:01] LABS: Anion Gap 6 mmol/L (8-16); Blood Urea Nitrogen 10 mg/dL (7-17); Calcium 8.7 mg/dL (8.4-10.2); Carbon Dioxide 30 mmol/L (22-30); Chloride 103 mmol/L (98-107); Estimated CRCL calculation 73 ml/min; Estimated Glomerular Filt Rate > 60; Glucose 189 mg/dL (65-110); Potassium 3.4 mmol/L (3.4-5.0); Sodium 139 mmol/L (137-145)
[2022-07-29] MEDS: CHOLECALCIFEROL 1,000 UNITS TABLET 2000 UNITS PO (10:05)
[2022-07-29] MEDS: ENOXAPARIN 40 MG/0.4 ML SYRINGE SUB-Q (10:05)
[2022-07-29] MEDS: FAMOTIDINE 20 MG TABLET PO (10:05)
[2022-07-29] MEDS: DONEPEZIL HCL 10 MG TABLET PO (10:05)
[2022-07-29] MEDS: QUEtiapine FUMARATE 100 MG TABLET PO (10:06)
[2022-07-29] MEDS: MEMANTINE 10 MG TABLET PO (10:06)
[2022-07-29] MEDS: LINACLOTIDE 145 MCG CAPSULE PO (10:06)
[2022-07-29] MEDS: POTASSIUM CHLORIDE 20 MEQ PACKET (FOR LIQUID) 40 MEQ PO (10:07)
[2022-07-29] MEDS: TOLNAFTATE 1% POWDER 45 GM BTL 1 APPLIC TOPICAL (10:07)
--- NOTE | 2022-07-29 11:42 | PM.DS ---
DS: Admitting Diagnosis Discharge Date July 29, 2022 Admitting Diagnosis Sepsis secondary to UTI DS: Discharge Diagnosis Discharge Diagnosis (1) Sepsis: Code(s): A41.9 - Sepsis, unspecified organism Status: Acute Assessment and Plan: Continue IV antibiotics, sepsis is improved (2) Acute UTI: Code(s): N39.0 - Urinary tract infection, site not specified Status: Acute Assessment and Plan: Await cultures On broad-spectrum antibiotics (3) Altered mental status: Code(s): R41.82 - Altered mental status, unspecified Status: Acute Assessment and Plan: Likely secondary to encephalopathy (4) Dementia: Code(s): F03.90 - Unspecified dementia, unspecified severity, without behavioral disturbance, psychotic disturbance, mood disturbance, and anxiety Status: Acute Assessment and Plan: Unchanged DS: Summary Hospital Course Hospital Course: Patient was admitted for sepsis secondary to UTI. Started on IV antibiotics on sepsis protocol. Patient did exceptionally well wound is now off IV antibiotics and tolerating oral antibiotics. Urine did grow E coli and she will be sent on Bactrim for 5 more days. Time Spent with Patient Time attestation: Total time spent providing and/or coordinating discharge services: Exam Narrative: General: elderly female in no acute distress at this time HEENT:? pupils equal and reactive, moist oral mucosa Neck:? supple Respiratory:? clear to auscultation decreased at bases Cardiac:? S1-S2 is normal, regular rate and rhythm Abdomen:? soft, nontender, nondistended, normoactive bowel sounds, obese Extremities:? no edema, palpable pedal pulses Neuro:? patient is awake, alert, answers to questions appropriately and follows simple commands in all extremities, patient somnolent Skin:? no skin lesions noted DS: Data Data Completed and Pending Labs on day of discharge: Labs from last 24 hours 07/29/22 08:43 Sodium 139 Potassium 3.4 Chloride 103 Carbon Dioxide 30 Anion Gap 6 L BUN 10 Creatinine 0.50 L Estim Creat Clear Calc 73 Estimated GFR > 60 Glucose 189 H Calcium 8.7 Preliminary micro results at discharge 07/25/22 00:09 Blood Culture - Preliminary Blood Discharge Plan Discharge Attending physician on discharge: Pedro Chatterjee Consulting providers: Joaquin Solomon Discharging Clinician: Pedro Chatterjee Patient Disposition: [place] Care Home/Asst Living Activity: no preference Diet: as tolerated Patient Instructions: Antibiotic Form Stand Alone Forms: General Discharge Information Follow-up/Referrals: Ryan Leigh MD [Primary Care Provider] - Discharge Medications: New sulfamethoxazole-trimethoprim [Bactrim DS] 800-160 mg tablet 1 tablet PO Q12H Qty: 10 0RF Continued donepezil 10 mg tablet 10 mg PO DAILY amlodipine 5 mg tablet 5 mg PO DAILY quetiapine 100 mg tablet 100 mg PO DAILY famotidine 20 mg tablet 20 mg PO DAILY nystatin 100,000 unit/gram Powder 1 applic TOPICAL BID Rx Instructions: under breasts albuterol sulfate 90 mcg/actuation HFA aerosol inhaler 2 inh INHALATION Q6H PRN (Reason: Shortness Of Breath Or Wheezing) ondansetron 4 mg tablet,disintegrating 4 mg PO Q6H PRN (Reason: Nausea) losartan 100 mg tablet 100 mg PO DAILY memantine 10 mg tablet 10 mg PO BID cholecalciferol (vitamin D3) 50 mcg (2,000 unit) Tablet 50 mcg PO DAILY Linzess 145 mcg capsule 145 mcg PO DAILY Date of admission: 07/25/22 02:54 Primary Care Provider: Ryan Leigh Admitting Provider: José Luis Burnham V. Attending physician on admission: José Luis Burnham V. Condition: Stable
[2022-07-29 13:29] LABS: EDCOVIDSCREEN Negative (Negative)
[2022-07-29 14:00] VITALS: BP 155/80; PULSE 91; RESP 18; TEMP 36.4; O2SAT 96
== END 2022-07-29 16:50 | DRG 872 ==
LOC: ANHED 07-25 02:53 → ANHICU 07-25 03:39 → ANH3MEDSUR 07-26 09:49 → ANHICU 07-30 14:48
PROVIDERS: Internal Medicine; Admitting Provider Internal Medicine; Emergency Provider Emergency Medicine; PCP Family Medicine; Visit Provider Chiropractor
DX: A41.9 Sepsis, unspecified organism (principal); N39.0 Urinary tract infection, site not specified; B96.20 Unspecified Escherichia coli [E. coli] as the cause of diseases classified elsewhere; F03.90 Unspecified dementia, unspecified severity, without behavioral disturbance, psychotic disturbance, mood disturbance, and anxiety; F32.A Depression, unspecified; Z20.822 Contact with and (suspected) exposure to COVID-19
CPT/HCPCS: 36415; 36556; 51702; 70450; 71045; 80048; 80053; 81001; 82550; 83605; 83690; 83735; 84100; 84484; 85025; 85610; 85730; 86140; 87040; 87077; 87086; 87186; 87426; 87637; 93005; 96365; 96366; 96367; 96375; 97161; 99291; A9270; C1751; C9803; J0131; J0692; J1650; J3370; J7030